=== PATIENT | female | born 1960 | race Caucasian/White ===

== ENCOUNTER 2016-08-08 14:09 | Emergency (ER) | payer OTHER ==
[~2016-08-08] VITALS: Ht 152.4 cm; Wt 70.3 kg
[2016-08-08] MEDS ORDERED: SIMV40TA4 (14:22)
[2016-08-08] MEDS ORDERED: ASPI1POW (14:22)
--- NOTE | 2016-08-08 14:29 | ED EENT ---
History of Present Illness General Chief Complaint: Dental Problems/Pain Stated Complaint: DENTAL PAIN Nursing Triage Note: LEFT LOWER DENTAL PAIN STARTING YESTERDAY. PT HAS BEEN TAKING BC POWDERS AND TYLENOL FOR PAIN WHICH IS NOT HELPING. Source: patient, family Exam Limitations: no limitations History of Present Illness Time seen by provider: 14:29 Initial Comments 56-year-old female patient presents to the emergency department complains of left lower dental pain beginning yesterday. Patient states she has been using [id number] Tylenol and "BC powder" for pain without improvement. Denies contacting her family practitioner or dentist. Timing/Duration: abrupt Location: dental Prearrival Treatment: over the counter meds Modifying Factors: Worse With Other ("hot and cold liquids/foods") Allergies and Home Medications Allergies Coded Allergies: No Known Drug Allergies (Unverified , 08/08/16) Home Medications Aspirin/Caffeine 1 Each Powd.pack (Reported) Simvastatin 40 Mg Tablet (Reported) Review of Systems Constitutional: No chills, No diaphoresis, No fever, No malaise Eyes: No Symptoms Reported Ears: No Symptoms Reported Nose: no symptoms reported Mouth: see HPI pain (left lower) swelling (left lower gums) Throat: denies pain, denies swelling, denies neck stiffness, denies hoarse, denies aphonia, denies muffled, denies painful swallowing, denies difficulty with fluids Respiratory: no symptoms reported Cardiovascular: no symptoms reported Musculoskeletal: no symptoms reported Skin: no symptoms reported Neurological: No Symptoms Reported All Other Systems Reviewed Negative Unless Noted: Yes (Negative excepted noted.) Past Axttnoz-Avtuaz-Xdmkwn Hx Patient Social History Alcohol Use: Denies Use Recreational Drug Use: No Smoking Status: Current Everyday Smoker Recent Foreign Travel: No Contact w/Someone Who Travel: No Recent Infectious Disease Expo: No Recent Hopitalizations: No Surgeries HX Surgeries: Yes Surgeries: Gallbladder, Tubal Ligation Respiratory Hx Respiratory Disorders: No Cardiovascular Hx Cardiac Disorders: Yes Cardiac Disorders: High Cholesterol Neurological Hx Neurological Disorders: No Reproductive System Hx Reproductive Disorders: No Genitourinary Hx Genitourinary Disorders: No Gastrointestinal Hx Gastrointestinal Disorders: No Musculoskeletal Hx Musculoskeletal Disorders: No Endocrine Hx Endocrine Disorders: No HEENT HX ENT Disorders: No Cancer Hx Cancer: No Reviewed Nursing Assessment Reviewed/Agree w Nursing PMH: Yes Family Medical History Significant Family History: No Pertinent Family Hx Physical Exam Vital Signs Vital Sign - Last 12Hours 08/08/16 14:17 Temp 98.0 Pulse 107 Resp 18 B/P 147/94 Pulse Ox 95 General Appearance: WD/WN no apparent distress Eyes: bilateral eye EOMI, bilateral eye PERRL, bilateral eye normal inspection Ears: bilateral ear TM normal, bilateral ear auricle normal, bilateral ear canal normal Nose: normal inspection Mouth/Throat: pharynx normal dental tenderness (left lower)No excessive drooling, No mandibular swelling, No maxillary swelling, No trismus, No uvula swelling, No voice changes, other (mild swelling of the left lower gums. Numerous dental caries and broken teeth noted throughout the mouth.) Neck: non-tender full range of motion supple normal inspection Cardiovascular: regular rate, rhythm no murmur Respiratory: lungs clear normal breath sounds no respiratory distress Neurologic/Psychiatric: alert normal mood/affect oriented x 3 Skin: normal color warm/dry Progress/Results/Core Measures Results/Orders Vital Signs/I&O Vital Sign - Last 12Hours 08/08/16 14:17 Temp 98.0 Pulse 107 Resp 18 B/P 147/94 Pulse Ox 95 Blood Pressure Mean: 111 Departure Impression Impression: Primary Impression: Infected tooth Disposition: 01 HOME, SELF-CARE Condition: Improved Departure-Patient Inst. Decision time for Depature: 14:42 Referrals: NO,LOCAL PHYSICIAN (PCP/Family) Primary Care Physician Patient Instructions: Dental Pain (DC) Add. Discharge Instructions: All discharge instructions reviewed with patient and/or family. Voiced understanding. Medications as instructed. Tylenol extra strength over-the- counter as directed for pain. Sitb-jve-[id number] Orajel if needed for pain. Drink plenty of fluids. Follow-up with your dentist for a recheck this week and for possible need of dental repair. Call today for appointment time. Return to the emergency department for worsened symptoms or any other concerns. Scripts Naproxen (Naprosyn)500 Mg [id number] Mg PO BID PRN PAIN #20 TAB Ref 0 Prov:CASEY JACOBS 08/08/16 Amoxicillin 500 Mg [id number] Mg PO QID #28 CAP Ref 0 Prov:CASEY JACOBS 08/08/16 CASEY JACOBS Aug 08, 2016 14:29
[2016-08-08] MEDS ORDERED: HYDROcodone/APAP 5 MG/325 MG (LORTAB) TAB PO STA (14:44)
[2016-08-08] MEDS ORDERED: AMOX500C2 PO (14:44)
[2016-08-08] MEDS ORDERED: NAPR500T PO (14:44)
[2016-08-08 14:54] VITALS: BP 147/94
== END 2016-08-08 14:54 | disposition home or self-care (01) ==
LOC: ER 14:12
DX: K04.7 Periapical abscess without sinus (principal)
CPT/HCPCS: 99282